=== PATIENT | female | born 1950 ===

== ENCOUNTER 2024-06-22 13:42 | Outpatient (CLI) | payer OTHER | END 2024-06-22 13:44 | disposition home or self-care (01) | LOC: SONOGRAMA 13:42 | PROVIDERS: ATTEND Pathology Anatomic Pathology & Clinical Pathology | DX: D34 Benign neoplasm of thyroid gland (principal); D44.0 Neoplasm of uncertain behavior of thyroid gland; E07.89 Other specified disorders of thyroid; E04.2 Nontoxic multinodular goiter ==

== ENCOUNTER 2024-10-05 12:10 | Outpatient (CLI) | payer OTHER | END 2024-10-05 12:12 | disposition home or self-care (01) | LOC: SONOGRAMA 12:10 | PROVIDERS: ATTEND Pathology Anatomic Pathology & Clinical Pathology | DX: D44.0 Neoplasm of uncertain behavior of thyroid gland (principal); E04.1 Nontoxic single thyroid nodule ==